=== PATIENT | female | born 1990 | race Caucasian/White ===

== ENCOUNTER 2017-01-04 18:22 | Emergency (ER) | payer BC, MEDICAID ==
[~2017-01-04] VITALS: Wt 78.0 kg
[~2017-01-04 18:22] MED LIST: PREN-46 PO
[2017-01-04 18:28] VITALS: Wt 78.0 kg
[2017-01-04] MEDS ORDERED: EPINEPHrine 1 MG INJ IM STA (19:25)
[2017-01-04] MEDS ORDERED: DIPHENHYDRAMINE 50 MG INJ IV STA (19:25)
[2017-01-04] MEDS ORDERED: METHYLPREDNISOLONE 125 MG INJ IV STA (19:25)
[2017-01-04] MEDS ORDERED: SOD CHLORIDE 0.9% 1,000 ML IV STA (19:25)
[2017-01-04] MEDS ORDERED: FAMOTIDINE 20 MG INJ IV STA (19:25)
[2017-01-04 19:41] LABS: BASOPHILS % 0.2 % (0.0-2.0); EOSINOPHILS % 0.2 % (0.0-7.0); HEMATOCRIT 40.7 % (37.0-47.0); HEMOGLOBIN 13.1 g/dl (12.0-16.0); LYMPHOCYTES # 0.8 10^3/ul (0.8-2.9); LYMPHOCYTES % 9.2 % (15.0-51.0); MEAN CORPUSCULAR HGB CONC 32.2 g/dl (32.0-37.0); MEAN CORPUSCULAR VOLUME 80.8 fl (82.0-101.0); MONOCYTES % 0.5 % (0.0-11.0); NEUTROPHIL # 7.6 10^3/ul (1.6-7.5); NEUTROPHILS % 89.1 % (39.0-77.0); PLATELET COUNT 315 10^3/UL (140-415); RED BLOOD COUNT 5.04 10^6/ul (4.20-5.40); RED CELL DISTRIBUTION WIDTH 16.6 % (11.5-14.5); WHITE BLOOD COUNT 8.6 10^3/ul (4.8-10.8)
[2017-01-04 20:05] LABS: ALBUMIN/GLOBULIN RATIO 1.08; BILIRUBIN,INDIRECT 0.4 mg/dl (0-1.1); BILIRUBIN,TOTAL 0.4 mg/dl (0.2-1.3); CALCIUM 9.4 mg/dl (8.4-10.2); CREATININE 1.05 mg/dl (0.44-1.00); POTASSIUM 3.5 mmol/L (3.5-5.1); TOTAL PROTEIN 7.7 g/dl (6.1-8.1)
[2017-01-04] MEDS ORDERED: LORAZEPAM 2 MG INJ IV ONE (20:30)
[2017-01-04 20:37] LABS: THYROID STIMULATING HORMONE 0.414 MIU/L (0.465-4.680)
[2017-01-04] MEDS ORDERED: BEN50 PO (20:45)
[2017-01-04] MEDS ORDERED: PRED20TA PO (20:45)
--- NOTE | 2017-01-04 21:07 | ERD ---
ER Documentation Chief Complaint Date/Time DATE: 01/04/17 TIME: 21:06 Chief Complaint sob, shakes after 5 min depo shot HPI Patient is a 26-year-old female with no medical problems who presents with a reaction to a Depo-Provera shot. She had the Depo shot given at 5:45 PM. She said that 5 minutes after receiving the shot she started with shortness of breath and shivering. She had a rash all over her body which was itchy that was coming and going. She said that she had one shot of this before 4 years ago but has not had any since. She called her primary doctor who told her to go to the emergency department. She has had no treatment as of yet. The symptoms have been constant. ROS All systems reviewed and are negative except as per history of present illness. Medications Home Meds Active Scripts Diphenhydramine Hcl* (Benadryl*) 50 Mg Cap, 50 MG PO Q6H Y for ITCHING/RASH, # 30 CAP Prov:STEPHANI KEARNS MD 01/04/17 Prednisone* (Prednisone*) 20 Mg Tab, 60 MG PO DAILY for 4 Days, TAB Prov:STEPHANI KEARNS MD 01/04/17 Discontinued Reported Medications Vit #108/Iron/Fa ( ONE TABLET) 1 Each Tablet, 1 EACH PO 09/07/12 Allergies Allergies: Coded Allergies: No Known Allergy (Unverified , 01/04/17) PMhx/Soc Medical and Surgical Hx: pt denies Medical Hx, pt denies Surgical Hx History of Surgery: No Anesthesia Reaction: No Hx Neurological Disorder: No Hx Respiratory Disorders: No Hx Cardiac Disorders: No Hx Psychiatric Problems: No Hx Miscellaneous Medical Probl: No Hx Alcohol Use: No Hx Substance Use: No Hx Tobacco Use: No Smoking Status: Never smoker FmHx Family History: No diabetes Physical Exam Vitals Vital Signs Date Time Temp Pulse Resp B/P Pulse Ox O2 Delivery O2 Flow Rate FiO2 01/04/17 19:48 131 25 128/72 100 Nasal Cannula 2.0 01/04/17 19:20 Nasal Cannula 2 01/04/17 19:15 151 29 185/97 100 Room Air 01/04/17 18:28 99.6 129 24 165/95 99 Physical Exam Const: Moderate distress secondary to shivering Head: Atraumatic Eyes: Normal Conjunctiva ENT: Normal External Ears, Nose and Mouth. Neck: Full range of motion..~ No meningismus. Resp: Clear to auscultation bilaterally Cardio: Tachycardic rate without murmur Abd: Soft, non tender, non distended. Normal bowel sounds Skin: No petechiae or rashes Back: No midline or flank tenderness Ext: No cyanosis, or edema Neur: Awake and alert, patient has full body shivering however and is unable to control it, no seizure activity Psych: Normal Mood and Affect Result Diagram: 01/04/17193201/04/171932 Results 24 hrs Laboratory Tests Test 01/04/17 19:33 White Blood Count 8.610^3/ul Red Blood Count 5.0410^6/ul Hemoglobin 13.1g/dl Hematocrit 40.7% Mean Corpuscular Volume 80.8fl Mean Corpuscular Hemoglobin 26.0pg Mean Corpuscular Hemoglobin Concent 32.2g/dl Red Cell Distribution Width 16.6% Platelet Count 86044^3/UL Mean Platelet Volume 9.0fl Neutrophils % 89.1% Lymphocytes % 9.2% Monocytes % 0.5% Eosinophils % 0.2% Basophils % 0.2% Nucleated Red Blood Cells % 0.0/100WBC Neutrophils # 7.610^3/ul Lymphocytes # 0.810^3/ul Monocytes # 0.010^3/ul Eosinophils # 0.010^3/ul Basophils # 0.010^3/ul Nucleated Red Blood Cells # 0.010^3/ul Sodium Level 139mmol/L Potassium Level 3.5mmol/L Chloride Level 108mmol/L Carbon Dioxide Level 24mmol/L Anion Gap 11 Blood Urea Nitrogen 17mg/dl Creatinine 1.05mg/dl Glucose Level 96mg/dl Calcium Level 9.4mg/dl Total Bilirubin 0.4mg/dl Direct Bilirubin 0.00mg/dl Indirect Bilirubin 0.4mg/dl Aspartate Amino Transf (AST/SGOT) 36IU/L Alanine Aminotransferase (ALT/SGPT) 52IU/L Alkaline Phosphatase 143IU/L Total Protein 7.7g/dl Albumin 4.0g/dl Globulin 3.70g/dl Albumin/Globulin Ratio 1.08 Thyroid Stimulating Hormone (TSH) 0.414MIU/L Free Thyroxine 1.33ng/dl Current Medications Medications (Trade) Dose Ordered Sig/Storm Route PRN Reason Start Time Stop Time Status Last Admin Dose Admin Diphenhydramine HCl (Benadryl) 50 mg ONCE STAT IV 01/04/17 19:25 01/04/17 19:28 DC 01/04/17 19:36 Epinephrine (EPINEPHrine) 0.3 mg ONCE STAT IM 01/04/17 19:25 01/04/17 19:28 DC 01/04/17 19:45 Famotidine (Pepcid Iv) 20 mg ONCE STAT IV 01/04/17 19:25 01/04/17 19:28 DC 01/04/17 19:44 Methylprednisolone Sodium Succinate 125 mg 125 mg ONCE STAT IV 01/04/17 19:25 01/04/17 19:28 DC 01/04/17 19:44 Sodium Chloride (NS) 1,000 ml @ 1,000 mls/hr Q1H STAT IV 01/04/17 19:25 01/04/17 20:24 DC 01/04/17 19:36 Lorazepam (Ativan) 0.5 mg ONCE ONCE IV 01/04/17 20:30 01/04/17 20:31 DC 01/04/17 20:34 Procedures/MDM EKG read by me: Rate/Rhythm: Sinus tachycardia Intervals: Normal Impression: Tachycardia with a wandering baseline Patient is a 26-year-old female who presents with what appears to be an acute allergic drug reaction to Depo shot. The patient started with these symptoms immediately after receiving the shot. The patient was treated with Solu-Medrol , Pepcid, Benadryl, and epinephrine IM. The patient was given 0.5 mg of Ativan IV as well. The patient had laboratory studies which were basically normal including a normal free T4. The patient will be given a prescription for prednisone and Benadryl and she feels much better and her heart rate has normalized upon discharge. The patient can return for any worsening symptoms. I told her not to get the shot in the future and use some other sort of control. She can return for any worsening symptoms. Critical Care: Time: 35 minutes excluding all billable procedures. Treatments/Evaluations: Close monitoring and treatment of unstable vital signs, cardiorespiratory, and neurologic status, while maintaining tight balance of fluid, respiratory, and cardiac interventions. Departure Diagnosis: Primary Impression: Allergic reaction caused by a drug Encounter type: initial encounter Qualified Code: T78.40XA - Allergic reaction to drug, initial encounter Additional Impression: Shortness of breath Condition: Fair Patient Instructions: Allergic Reaction, Drug Referrals: Your doctor Additional Instructions: Call your primary care doctor TOMORROW for an appointment during the next 1-2 days.See the doctor sooner or return here if your condition worsens before your appointment time. STEPHANI KEARNS MD Jan 04, 2017 21:07
[2017-01-04 21:13] VITALS: BP 114/78; PULSE 103; RESP 22; TEMP 99.8
== END 2017-01-04 21:15 | disposition home or self-care (01) ==
LOC: E/R 18:22
DX: R06.02 Shortness of breath (principal); T38.5X5A Adverse effect of other estrogens and progestogens, initial encounter
CPT/HCPCS: 36415; 80053; 84439; 84443; 85025; 93005; 96372; 96374; 96375; J0171; J1200; J2060; J2930; J7030; Z7502; Z7610